=== PATIENT | male | born 1940 | race Caucasian/White ===

== ENCOUNTER 2017-09-02 13:10 | Outpatient (CLI) | payer MEDICARE ==
--- NOTE | 2017-09-02 14:55 | CT ---
CT BRAIN WITHOUT CONTRAST: HISTORY: Hydrocephalus. COMPARISON: CT brain from 04/29/2017 and 01/27/2014. FINDINGS: Right transfrontal ventriculostomy catheter is again present. No change in the hydrocephalus. No wo rsening. No acute hemorrhage or infarct. Mild gliosis surrounding the shunt tract of the right fron raman lobe. No midline shift or mass effect. The paranasal sinuses and mastoids are clear. IMPRESSION: Unchanged hydrocephalus with indwelling right transfrontal ventriculostomy catheter. POS: C
== END 2017-09-02 13:11 | disposition home or self-care (01) ==
LOC: TBSIIMAG 13:10
PROVIDERS: ATTEND Surgery
DX: G91.9 Hydrocephalus, unspecified (principal); W19.XXXA Unspecified fall, initial encounter; Z98.2 Presence of cerebrospinal fluid drainage device
CPT/HCPCS: 70450